=== PATIENT | female | born 1985 | race Caucasian/White ===

== ENCOUNTER 2017-10-15 00:21 | Inpatient (IN) | payer BC ==
[2017-10-16] MEDS ORDERED: Lactated Ringers 1,000 ML IV ONE (00:10)
[2017-10-16] MEDS ORDERED: Ondansetron 4 MG/2 ML SDV IV PRN (00:11)
[2017-10-16] MEDS ORDERED: Oxytocin/Normal Saline 30 UNIT/500 ML BAG IV SCH (00:15)
[2017-10-16] MEDS ORDERED: Lidocaine 1% 30 ML SDV ONE (00:26)
[2017-10-16] MEDS ORDERED: Misoprostol 400 MCG (4 X 100 MCG TAB) RECTAL PRN (00:29)
[2017-10-16] MEDS ORDERED: Carboprost Tromethamine 250 MCG/1 ML Amp IM PRN (00:29)
[2017-10-16] MEDS ORDERED: Sodium Chloride 0.9% 10 ML Syringe FLUSH PRN (00:29)
[2017-10-16] MEDS ORDERED: Methylergonovine 0.2 MG/1 ML Amp IM PRN (00:29)
[2017-10-16] MEDS ORDERED: Lidocaine 1% 30 ML SDV INJECT PRN (00:29)
[2017-10-16] MEDS ORDERED: Oxytocin 10 Units/1 ML SDV IM PRN (00:36)
[2017-10-16] MEDS ORDERED: Zolpidem 5 MG Tab PO PRN (00:36)
[2017-10-16] MEDS ORDERED: Benzocaine/Menthol 20%-0.5% Spray 56 GM Canister TOP PRN (00:36)
[2017-10-16] MEDS ORDERED: Simethicone 80 MG Tab.Chew PO PRN (00:36)
[2017-10-16] MEDS: Ibuprofen 800 MG Tab PO PRN ×3 (01:37→20:22)
[2017-10-16] MEDS ORDERED: FLU VAC QS 17-18(4YR UP)CEL/PF 60 MCG/0.5 ML Syringe IM ONE (01:45)
--- NOTE | 2017-10-16 04:10 | DEL ---
DATE: 10/16/2017 PREPROCEDURE DIAGNOSES: 1. A 39 and 4/7 weeks' intrauterine . 2. 3, para 2-0-0-2. 3. Advanced active labor. 4. Impaired glucose tolerance. 5. Baby measuring 2 weeks behind dates with symmetric growth delay. 6. Blood type O negative, rubella immune, group B strep negative. POSTPROCEDURE DIAGNOSES: 1. A 39 and 4/7 weeks' intrauterine . 2. 3, para 2-0-0-2. 3. Advanced active labor. 4. Impaired glucose tolerance. 5. Baby measuring 2 weeks behind dates with symmetric growth delay. 6. Blood type O negative, rubella immune, group B strep negative. 7. Precipitous vaginal delivery with first-degree laceration. BRIEF HISTORY: A 32-year-old female with the above-listed diagnoses, presented to the hospital just before midnight, and within about 20 minutes, she was complete and ready to start pushing. Her doctor was on his way into the hospital; however, I happened to be nearby, so I was able to attend to the delivery of the baby, and he made to the room about 1 to 1.5 minutes after the baby was born and completed the delivery of the placenta and perineal repair. Plan was for induction tomorrow morning because of baby's delayed growth. DELIVERY DETAILS: With the patient in dorsal lithotomy position, she delivered a viable male over intact perineum in the OA position. Infant was dried and mouth bulb suctioned. The baby placed up on mother's abdomen. Delayed cord clamping of a 3-vessel umbilical cord performed. Cord blood sample then obtained. Dr. Rubio was then present gloved and gowned and proceeded with delivery of the placenta and repair of a small first-degree laceration that appeared to go through prior scar and needed to be repaired for hemostasis. See his notes for that portion of the delivery. COMPLICATIONS: None. FINDINGS: Baby's weight is 3295g. Baby's scores are 9 and 9. ESTIMATED BLOOD LOSS: 200 mL. [facility] /[id number] MTDD
[2017-10-16] MEDS: Prenatal Multivitamin with Calcium/Folic Acid/Iron Tab PO SCH (08:25)
[2017-10-16] MEDS: Docusate Sodium 100 MG Cap PO PRN ×2 (08:25→20:22)
[2017-10-16] MEDS: Acetaminophen 325 MG Tab PO PRN (08:25)
--- NOTE | 2017-10-16 08:55 | PN ---
DATE: 10/16/2017 SUBJECTIVE: day #0, status post spontaneous vaginal delivery early this morning. No concerns per nursing staff. Concerns per patient include intermittent headaches throughout the night, not relieved by current medications but relieved with eating breakfast. No other concerns per patient. She is ambulating and tolerating a general diet. She denies fevers or chills, blurry vision, shortness of breath or chest pain, nausea or vomiting, sharp abdominal pains, or swelling or tenderness in any extremities. She is voiding, passing gas, and has not yet had a bowel movement. She notes mild lochia but denies foul smell. OBJECTIVE: Vital Signs: Temperature 97.4 Fahrenheit, heart rate 68, blood pressure 120/63, and respiratory rate 20. General: A pleasant well-appearing female. Heart: Regular rate and rhythm. S1 and S2. Lungs: Clear to auscultation bilaterally. No increased respiratory effort. Abdomen: Soft, nontender to palpation, nondistended. The uterus is firm and one fingerbreadth below the umbilicus. No excessive tenderness by palpation. Neurologic: No obvious neurologic deficits. Extremities: No erythema or tenderness noted in any extremity. Skin: Warm and dry. Well perfused. LABORATORY DATA: Drawn early this morning. White blood cell count 18.4, hemoglobin 12.7, and platelet count 225. ASSESSMENT: 1. day #0, status post spontaneous vaginal delivery. 2. Intrauterine gestation at 39 and 4/7 weeks. 3. G3, P2-0-0-2. 4. Active advanced labor. 5. Impaired glucose tolerance. 6. Baby measuring two weeks behind, symmetric. 7. Blood type O negative, rubella immune, group B streptococcus negative. 8. Precipitous delivery. 9. First-degree perineal abrasion/laceration, repaired. 10.Trailing membranes advanced with ring forceps. PLAN: Continue routine care for Rh-negative mother of Rh-positive . Repeat CBC tomorrow morning. Please see orders for further details. The plan has been discussed with the patient, she expressed understanding, and she is in agreement. We will continue to follow closely. The history, physical, assessment and plan are per Dr. Rubio; and this note is being scribed for Dr. Rubio. sign and agreed-[facility] /[id number] BHARAT
--- NOTE | 2017-10-16 10:17 | DEL ---
DATE: 10/16/2017 PREOPERATIVE DIAGNOSES: 1. Intrauterine at 39 and 4/7 weeks. 2. Advanced active labor. 3. Precipitous spontaneous vaginal delivery. 4. Impaired glucose tolerance. 5. Baby measuring 2 weeks behind-symmetric. 6. Group B Streptococcus negative. 7. G3, P2-0-0-2. POSTOPERATIVE DIAGNOSES: 1. Intrauterine at 39 and 4/7 weeks. 2. Advanced active labor. 3. Precipitous spontaneous vaginal delivery. 4. Impaired glucose tolerance. 5. Baby measuring 2 weeks behind-symmetric. 6. Group B Streptococcus negative. 7. G3, P2-0-0-2. 8. A first-degree perineal abrasion/laceration, requiring repair. PROCEDURE PERFORMED: Spontaneous vaginal delivery per Dr. Birmingham of the baby, then subsequent placental delivery, and first-degree perineal laceration repaired by Dr. Rubio with procedures performed on 10/16/2017. Trailing membranes requiring removal with ring forceps. ANESTHESIA/ANALGESIA: The patient did receive 1% lidocaine without epinephrine, approximately 5 mL for local good anesthetic result. FINDINGS: Male. scores and weight pending. SUMMARY OF EVENTS: The patient is a 32-year-old G3, P2-0-0-2, intrauterine at 39 and 3/7 weeks on 10/15/2017 when she was admitted. That was found to be 6 to 7 cm. I was called to the OB and presented in a stat fashion. Upon my arrival, Dr. Birmingham was in the room, and was just being placed on mother's abdomen/chest, and cord blood had been obtained. Subsequently, I resumed care of this patient, delivered the placenta with gentle cord traction and fundal massage. The perineum, vagina, and perirectal areas were then examined and noted to have small first-degree perineal laceration that was bleeding and requiring repair, and this was anesthetized and repaired in the usual fashion using 3-0 Vicryl. Vaginal exam, thereafter, did reveal some trailing membranes which were teased from the vaginal orifice with ring forceps and felt to be removed in its entirety with fundal massage, thereafter revealing minimal bleeding. Mother and infant are currently stable at the time of dictation. [facility] /[id number]
--- NOTE | 2017-10-16 10:22 | OBOUT ---
DATE: 10/16/2017 DATE AND TIME OF NST: Date: 10/15/2017 to 10/16/2017. Time: 2356 hours to 0010 hours. REASON FOR NST: Intrauterine at 39 and 3/7 to 39 and 4/7 weeks with impaired glucose tolerance. Baby measuring 2 weeks behind in symmetric nature. NST INTERPRETATION: During this time period, heart tone baseline is approximately 125 to 130, and there are at least two 15 x 15 beats per minute accelerations, making this strip reactive. It is also noted to be reassuring. Tocometer reveals potential 5 contractions during this time period, felt by the patient. ASSESSMENT: 1. Nonstress test, reactive and reassuring. 2. Tocometer with contractions. PLAN: During this NST, she was evaluated and found to be 6 to 7 cm and then subsequently went on to have a precipitous delivery. Please see Dr. Birmingham's notes for further details for her H and P. It was done in clinic and updated and scanned in through [facility]. Please see those notes for further details for this. Records were called for, reviewed, and summarized by the patient's history. [facility] /[id number]
[2017-10-17] MEDS: Ibuprofen 800 MG Tab PO PRN (04:18)
[2017-10-17] MEDS: Acetaminophen 325 MG Tab PO PRN (09:44)
[2017-10-17] MEDS: Prenatal Multivitamin with Calcium/Folic Acid/Iron Tab PO SCH (09:46)
[2017-10-17] MEDS: Docusate Sodium 100 MG Cap PO PRN (09:46)
[2017-10-17] MEDS ORDERED: FLU VAC QS 17-18(4YR UP)CEL/PF 60 MCG/0.5 ML Syringe IM ONE (10:15)
[2017-10-17 13:03] VITALS: BP 103/74
--- NOTE | 2017-10-18 05:31 | DISCH ---
ADMIT DIAGNOSES: 1. Intrauterine gestation at 39 and 4/7 weeks' gestation. 2. 3, para 2-0-0-2. 3. Active advance labor. 4. Impaired glucose tolerance. 5. Baby measuring 2 weeks behind symmetric. 6. Blood type O negative, rubella immune, group B streptococcus negative. DISCHARGE DIAGNOSES: 1. Intrauterine gestation at 39 and 4/7 weeks' gestation. 2. 3, para 2-0-0-2. 3. Active advance labor. 4. Impaired glucose tolerance. 5. Baby measuring 2 weeks behind symmetric. 6. Blood type O negative, rubella immune, group B streptococcus negative. 7. Delivered via spontaneous vaginal delivery. 8. Precipitous delivery. 9. First degree perineal abrasion/laceration, repaired. 10.Trailing membranes advanced with ring forceps. PROCEDURE PERFORMED: Precipitous spontaneous vaginal delivery per Dr. Birmingham, repair of small first degree perineal abrasion/laceration per Dr. Rubio. HISTORY OF PRESENT ILLNESS: Please see H and P. SUMMARY OF HOSPITAL COURSE: The patient was admitted on the above date with the above diagnoses. She presented to the hospital just before midnight, and within 20 minutes, she was complete and ready to start pushing. She underwent a spontaneous vaginal delivery yielding a male term . scores 9 and 9, weighing 7 pounds 4 ounces, 3295 grams with an EBL of 200 mL. day 0, please see progress note. day 1, date of discharge, the patient was tolerating p.o.'s, ambulating, urinating, and passing flatus. No bowel movement yet. She denies lightheadedness or dizziness, headaches or blurry vision, shortness of breath or chest pain nausea or vomiting, sharp abdominal pains or swelling or tenderness in any of her extremities. She has no concerns. OBJECTIVE: Vital Signs: Temperature 98.1 Fahrenheit, heart rate 83, blood pressure 117/78, respiratory rate 20. General: Alert, in no apparent distress. Lungs: Clear to auscultation bilaterally. No increased respiratory effort. Heart: Regular rate and rhythm, S1 and S2. Abdomen: Soft, nontender, nondistended. Uterus is firm and palpated 1 fingerbreadth below the umbilicus. No excessive tenderness to palpation. Extremities: No peripheral edema, erythema, or tenderness. LABORATORY DATA: Drawn this morning day 1 revealed a white blood cell count of 12.3, hemoglobin of 11.9, and platelets of 194. CONDITION ON DISCHARGE COMPARED TO CONDITION ON ADMISSION: Improved. DISCHARGE INSTRUCTIONS: 1. Diet as tolerated. 2. Activity, no lifting more than 20 pounds, no sit-ups, straining, and pelvic rest for the next 6 weeks with immediate return to fertility discussed with the patient. 3. Reasons to return or go to the emergency room were discussed in detail including but not limited to temperature greater than 100.4, foul-smelling discharge, red, hot, tender breasts, increased vaginal bleeding. 4. Discharge medications; [id number] Tylenol or ibuprofen for pain. 5. It was discussed with the patient in the interim reasons to return or go to the emergency room in regard to her . 6. Followup will be scheduled for her in 3 days from now on Friday, October 20, 2017, and she was instructed to schedule her visit at that visit. The patient expressed understanding to the above plan and was in agreement. The history, physical, assessment, and plan are per Dr. Rubio, and this note is being scribed for Dr. Rubio. seen and agreed-[facility] /[id number] BHARAT
== END 2017-10-17 11:45 | disposition home or self-care (01) | DRG 560 ==
LOC: DL.OB 00:21 → OBSVTOIN 10-16 00:21 → EDSTATUS 11-05 14:11
PROVIDERS: ADMIT Family Medicine; ATTEND Family Medicine
PROC: 10E0XZZ Delivery of Products of Conception, External Approach (ICD-10-PCS; principal; 2017-10-16)
PROC: 0HQ9XZZ Repair Perineum Skin, External Approach (ICD-10-PCS; 2017-10-16)
DX: O62.3 Precipitate labor (principal); O70.0 First degree perineal laceration during delivery; Z3A.40 40 weeks gestation of pregnancy; Z37.0 Single live birth; Z88.1 Allergy status to other antibiotic agents
CPT/HCPCS: 36415; 59300; 59409; 85027; 85461; 86850; 86870; 86900; 86901; 90674; A9270-GY; J2590; J2790; J7120